=== PATIENT | male | born 1970 | race Caucasian/White ===

== ENCOUNTER 2019-02-24 10:38 | Inpatient (IN) | payer SELFPAY ==
[~2019-02-24] VITALS: Ht 180.3 cm; Wt 143.5 kg
[2019-02-24 11:09] LABS: Basophils # (auto) 0.1 uL; Eosinophils # (auto) 0.2 uL; Eosinophils % (auto) 1.7 % (0.0-7.0); Hematocrit 47.5 % (41.0-53.0); Hemoglobin 16.3 g/dL (13.5-17.5); Lymphocytes # (auto) 1.9 uL; Mean Corpuscular Hemoglobin 30.2 pg (28.0-32.0); Mean Corpuscular Hgb Conc. 34.3 g/dL (32.0-36.0); Mean Corpuscular Volume 88.1 fL (80.0-100.0); Monocytes # (auto) 0.7 uL; Neutrophils # (auto) 7.1 uL; Neutrophils % (auto) 71.3 % (37.0-80.0); Nucleated Red Blood Cells % 0.1 %; Platelet Count (auto) 144 10^3/uL (140-450); Red Blood Cells 5.39 10^6/uL (4.5-5.90); Red Cell Distribution Width 13.8 % (11.8-14.3)
[2019-02-24] MEDS ORDERED: KETOROLAC TROMETH 30 MG/ML 1ML VIAL IV ONE (11:15)
[2019-02-24] MEDS ORDERED: ONDANSETRON HCL 4 MG/2 ML VIAL IV ONE (11:15)
[2019-02-24 11:28] LABS: Albumin 3.4 g/dL (3.4-5.0); Calcium 8.6 mg/dL (8.5-10.1); Potassium 3.8 mmol/L (3.5-5.1)
[2019-02-24 11:32] LABS: BUN/Creatinine Ratio 10.1; Bilirubin, Total 0.8 mg/dL (0.2-1.0); Total Protein 6.6 g/dL (6.4-8.2)
[2019-02-24] MEDS ORDERED: TAMSULOSIN HYDROCHLORIDE 0.4 MG CAP PO ONE (12:15)
[2019-02-24 12:37] LABS: Urine Bacteria NONE SEEN /hpf (None Seen); Urine Blood Negative /uL (Negative); Urine Specific Gravity 1.003 (1.001-1.035); Urine WBC <1 /hpf (0 - 3)
[2019-02-24] MEDS ORDERED: NITROGLYCERIN 0.4 MG SL TAB SL PRN (14:00)
[2019-02-24] MEDS ORDERED: ACETAMINOPHEN 500 MG TAB PO PRN (14:00)
[2019-02-24] MEDS ORDERED: ONDANSETRON HCL 4 MG/2 ML VIAL IV PRN (14:00)
[2019-02-24] MEDS ORDERED: MORPHINE SULF INJ 2 MG/ML SYRINGE 1ML IV PRN ×2 (14:00)
[2019-02-24] MEDS ORDERED: cefTRIAXone 1GM/50ML D5W 50 ML IV ONE (14:15)
[2019-02-24] MEDS: SODIUM CHLORIDE 0.9% 1,000 ML IV SCH ×2 (14:16→22:34)
[2019-02-24 15:15] VITALS: BP 133/68
--- NOTE | 2019-02-24 15:15 | NUR ---
MS admit from ER EDWARDO,PAYAL admitted to tele/MS. NO report nor SBAR received from Jamar REYNOSO. Patient oriented to ULISES SANTANA, primary RN, unit, room, bed, and unit policies regarding patient care and visiting hours. Patient instructed to strain all urines. Patient noted ambulatory with steady gait. Patient weighed by bedscale and encouraged to call if they need something. All questions and concerns addressed, patient verbalized understanding.
[2019-02-24] MEDS: TAMSULOSIN HYDROCHLORIDE 0.4 MG CAP PO SCH (17:33)
--- NOTE | 2019-02-24 19:33 | NUR ---
RECEIVED REPORT FROM DAY RN POC REVIEWED
[2019-02-24 21:30] VITALS: BP 147/70
[2019-02-25] MEDS: KETOROLAC TROMETH 30 MG/ML 1ML VIAL IV PRN ×3 (00:47→17:57)
--- NOTE | 2019-02-25 01:49 | NUR ---
awoke c/o abd pain 03/03 medicated as ordered
[2019-02-25 04:30] VITALS: BP 133/76
[2019-02-25] MEDS: SODIUM CHLORIDE 0.9% 1,000 ML IV SCH ×3 (06:49→22:12)
--- NOTE | 2019-02-25 06:55 | NUR ---
report given to am nurse poc reviewed
[2019-02-25 06:56] LABS: Basophils # (auto) 0.1 uL; Basophils % (auto) 0.9 % (0.0-2.0); Eosinophils # (auto) 0.3 uL; Eosinophils % (auto) 3.4 % (0.0-7.0); Hematocrit 45.7 % (41.0-53.0); Hemoglobin 15.3 g/dL (13.5-17.5); Lymphocytes % (auto) 21.3 % (10.0-50.0); Mean Corpuscular Hgb Conc. 33.6 g/dL (32.0-36.0); Mean Corpuscular Volume 89.4 fL (80.0-100.0); Monocytes % (auto) 10.2 % (0.0-12.0); Neutrophils # (auto) 6.1 uL; Neutrophils % (auto) 64.2 % (37.0-80.0); Nucleated Red Blood Cells % 0.2 %; Platelet Count (auto) 120 10^3/uL (140-450); Red Blood Cells 5.11 10^6/uL (4.5-5.90); Red Cell Distribution Width 13.8 % (11.8-14.3); White Blood Cell 9.5 10^3/uL (4.4-10.8)
[2019-02-25 07:19] LABS: Potassium 3.8 mmol/L (3.5-5.1)
[2019-02-25 07:23] LABS: Uric Acid 8.4 mg/dL (3.5-7.2)
[2019-02-25 07:25] LABS: BUN/Creatinine Ratio 13.9
[2019-02-25 07:26] LABS: Calcium 8.1 mg/dL (8.5-10.1)
[2019-02-25 08:30] VITALS: BP 136/84
[2019-02-25] MEDS ORDERED: cefTRIAXone 1GM/50ML D5W 50 ML IV SCH (09:00)
[2019-02-25 13:06] VITALS: BP 100/73
[2019-02-25 17:30] VITALS: BP 133/71
[2019-02-25] MEDS: TAMSULOSIN HYDROCHLORIDE 0.4 MG CAP PO SCH (17:57)
--- NOTE | 2019-02-25 19:19 | NUR ---
CLOSING NOTE ENDORSED CARE TO PANEL FLOW MACHINE OPERATOR RN. PATIENT IN BED LOW LOCK POSITION, CALL LIGHT IN REACH. NO S/S OF DISTRESS.
--- NOTE | 2019-02-25 19:30 | NUR ---
received pt from day rn poc reviewed
--- NOTE | 2019-02-25 20:31 | NUR ---
resting comfortable discussed poc reeducated pt on straining urine, denies pain at this moment, all questions and concerns addressed
[2019-02-25 21:30] VITALS: BP 126/79
[2019-02-26 05:10] VITALS: BP 165/92
[2019-02-26] MEDS: SODIUM CHLORIDE 0.9% 1,000 ML IV SCH ×2 (05:44→15:04)
[2019-02-26 06:54] LABS: INR 0.92 (0.9-1.15); Partial Thromboplastin Time 26.3 sec (23.64-32.05)
--- NOTE | 2019-02-26 06:54 | NUR ---
awoke ambulating around unit, no abd pain , will report off to am nurse
--- NOTE | 2019-02-26 07:30 | NUR ---
Opening Shift Note Assumed care of patient, awake, alert, and oriented x4. No S/S of distress/SOB, but patient is reporting right upper flank pain of 5/10. IV is in left AC 20 gauge asymptomatic, intact, patent, and infusing normal saline at 125 mL/hour. Bed is locked and in lowest position and call light is within reach. Instructed on POC and to call for assist PRN, and patient verbalized understanding. Will continue to monitor for changes Q1hr and PRN.
[2019-02-26 08:55] VITALS: BP 139/73
[2019-02-26] MEDS: KETOROLAC TROMETH 30 MG/ML 1ML VIAL IV PRN ×2 (08:59→17:29)
--- NOTE | 2019-02-26 11:13 | NUR ---
Nutrition Assessment/consult Notes Please see attached link for complete assessment Est. Needs ABW [id number] kcal (17-20kcal/kgBW), 88-111 gms pro (0.8-1.0 gms/kgABW). Will continue to monitor pertinent labs and reassess nutrient need prn. Addendum: 02/26/19 at [address] Amended: Links added.
[2019-02-26 13:12] VITALS: BP 132/72
[2019-02-26 16:30] VITALS: BP 126/74
[2019-02-26] MEDS: TAMSULOSIN HYDROCHLORIDE 0.4 MG CAP PO SCH (18:53)
--- NOTE | 2019-02-26 19:20 | NUR ---
Opening Shift Note Received report from fauzia Ovalles RN. Assumed care of patient, awake and alert. No S/S of distress/SOB or pain. Preparing patient for shower, securing IV site with plastic and tape. Instructed on POC and to call for assist PRN, will continue to monitor for changes Q1hr and PRN. Bed placed in lowest position, and call light within reach.
[2019-02-26 22:00] VITALS: BP 134/88
[2019-02-27] MEDS: SODIUM CHLORIDE 0.9% 1,000 ML IV SCH ×3 (02:43→13:57)
[2019-02-27 05:00] VITALS: BP 129/73
--- NOTE | 2019-02-27 07:00 | NUR ---
Opening Shift Note Assumed care of patient, awake, alert, and oriented x4. No S/S of distress/SOB, but patient is reporting right lower flank pain of 3/10. IV is in left AC asymptomatic, intact, patent, and infusing normal saline at 125 mL/hour. Bed is locked and in lowest position and call light is within reach. Instructed on POC and to call for assist PRN, and patient verbalized understanding. Will continue to monitor for changes Q1hr and PRN.
--- NOTE | 2019-02-27 07:45 | NUR ---
Fowler catheter insertion Patient assessed and determined to be in need of Fowler catheter. Order obtained from Dr. Shaw MD. Patient educated on catheter and reason for insertion. All questions answered. Fowler catheter 16 gauge Haitian inserted with clean sterile technique. Patient tolerated well.
[2019-02-27 09:00] VITALS: BP 153/72
[2019-02-27] MEDS: KETOROLAC TROMETH 30 MG/ML 1ML VIAL IV PRN (09:18)
--- NOTE | 2019-02-27 10:30 | NUR ---
Patient taken down to Pre-op via hospital bed; no distress noted at time of departure.
[2019-02-27] MEDS ORDERED: ceFAZolin 1GM/50ML 50 ML IV ONE (10:49)
[2019-02-27] MEDS ORDERED: LIDOCAINE 2% JELLY 11ml (GLYDO) ONE (11:33)
[2019-02-27] MEDS ORDERED: SUCCINYLCHOLINE CHLORIDE 20 MG/ML 10ML VIAL IV ONE (11:40)
[2019-02-27] MEDS ORDERED: MEPERIDINE HCL (25 MG/ML) 1ML VIAL ONE (11:49)
[2019-02-27] MEDS ORDERED: fentaNYL CITRATE 100 MCG/2 ML VL ONE (11:49)
[2019-02-27] MEDS ORDERED: MIDAZOLAM HCL 1MG/1ML-2 ML VIAL ONE (11:50)
[2019-02-27] MEDS ORDERED: DexAMETHasone SOD PHOS 10MG/1ML VIAL INJ ONE (12:05)
[2019-02-27] MEDS ORDERED: PROPOFOL 10 MG/ML 20 ML IV ONE (12:05)
[2019-02-27] MEDS ORDERED: ePHEDrine SULFATE 50 MG/ML AMP IV PRN (12:15)
[2019-02-27] MEDS ORDERED: HYDROmorphone HCL 2 MG/ML VL IV PRN (12:15)
[2019-02-27] MEDS ORDERED: LABETALOL HCL 5 MG/ML 4ML SYRINGE IV PRN (12:15)
[2019-02-27] MEDS ORDERED: METOCLOPRAMIDE HCL 5MG/ml INJ 2ml VIAL IV ONE (12:15)
[2019-02-27] MEDS ORDERED: KETOROLAC TROMETH 30 MG/ML 1ML VIAL IV ONE (12:15)
[2019-02-27] MEDS ORDERED: ONDANSETRON HCL 4 MG/2 ML VIAL IV ONE (12:15)
[2019-02-27] MEDS ORDERED: PHENYLEPHRINE HCL 10 MG/ML VL ONE (12:28)
[2019-02-27] MEDS ORDERED: FUROSEMIDE 20 MG/2 ML VIAL IV SCH (13:15)
[2019-02-27] MEDS ORDERED: FUROSEMIDE 20 MG/2 ML VIAL ONE (13:16)
[2019-02-27] MEDS ORDERED: MORPHINE SULFATE 4 MG/ML SYR/VIAL IV ONE (14:00)
[2019-02-27] MEDS ORDERED: ALL100T PO (14:12)
--- NOTE | 2019-02-27 16:00 | NUR ---
Urena catheter dc'd Order to discontinue urena catheter. Urena dc'd with clean technique following deflation of balloon. Patient tolerated well with no complaints of pain. Continue care.
[2019-02-27 16:42] VITALS: BP 152/90
--- NOTE | 2019-02-27 17:04 | NUR ---
Discharge instructions given as ordered. Encourage to follow up with PMD as instructed. All questions and concerns addressed. Patient verbalized understanding. Medication reconciliation form completed and copy given to patient. IV removed with catheter intact, pressure dressing applied. Patient walked to vehicle with all personal belongings, accompanied by family member. No distress noted at time of departure.
[2019-02-28] MEDS ORDERED: ALLOPURINOL 100 MG TAB PO SCH (10:00)
== END 2019-02-27 17:00 | disposition home or self-care (01) | DRG 669 ==
LOC: ER 10:41 → WEST WING 15:29
PROVIDERS: ADMIT Nurse Practitioner Acute Care; ATTEND Internal Medicine
PROC: 0TC68ZZ Extirpation of Matter from Right Ureter, Via Natural or Artificial Opening Endoscopic (ICD-10-PCS; 2019-02-27)
PROC: 0TC38ZZ Extirpation of Matter from Right Kidney Pelvis, Via Natural or Artificial Opening Endoscopic (ICD-10-PCS; principal; 2019-02-27 11:45)
DX: N13.2 Hydronephrosis with renal and ureteral calculous obstruction (principal); Z68.41 Body mass index [BMI] 40.0-44.9, adult; R16.0 Hepatomegaly, not elsewhere classified; E66.01 Morbid (severe) obesity due to excess calories; N13.0 Hydronephrosis with ureteropelvic junction obstruction; K76.0 Fatty (change of) liver, not elsewhere classified; K42.9 Umbilical hernia without obstruction or gangrene; M10.9 Gout, unspecified; Z80.8 Family history of malignant neoplasm of other organs or systems; Z82.49 Family history of ischemic heart disease and other diseases of the circulatory system; Z79.899 Other long term (current) drug therapy
CPT/HCPCS: 36415; 71045; 74176; 80048; 80053; 80061; 81001; 83036; 84550; 85025; 85610; 85730; 86850; 86900; 86901; A4565; G0378; J0330; J0690; J0696; J1100; J1885; J2250; J2405; J2704